=== PATIENT | male | born 1985 | race Caucasian/White ===

== ENCOUNTER 2017-09-19 21:13 | Emergency (ER) | payer MEDICAID, OTHER ==
[~2017-09-19] VITALS: Ht 180.3 cm; Wt 155.3 kg
[2017-09-19 21:14] VITALS: BP 144/99
[2017-09-19] MEDS ORDERED: IBUPROFEN (21:31)
[2017-09-19] MEDS ORDERED: INDOMETHACIN 50 MG CAPSULE PO ONE (22:00)
== END 2017-09-19 22:30 | disposition home or self-care (01) ==
LOC: ED 22:00
DX: M79.641 Pain in right hand (principal); M25.531 Pain in right wrist; M10.9 Gout, unspecified
CPT/HCPCS: 99284

== ENCOUNTER 2018-11-01 13:30 | Emergency (ER) | payer SELFPAY ==
[~2018-11-01] VITALS: Ht 180.3 cm; Wt 168.3 kg
[~2018-11-01 13:30] MED LIST: IBUPROFEN
[2018-11-01 13:36] VITALS: BP 129/82
[2018-11-01] MEDS ORDERED: METHOCARBAMOL 750 MG TABLET ONE (14:11)
[2018-11-01] MEDS ORDERED: KETOROLAC 30 MG/1 ML ONE (14:11)
[2018-11-01] MEDS ORDERED: KETOROLAC 30 MG/1 ML IM ONE (14:30)
[2018-11-01] MEDS ORDERED: METHOCARBAMOL 750 MG TABLET PO ONE (14:30)
== END 2018-11-01 15:10 | disposition home or self-care (01) ==
LOC: ED 15:00
DX: S39.012A Strain of muscle, fascia and tendon of lower back, initial encounter (principal); M13.171 Monoarthritis, not elsewhere classified, right ankle and foot; X58.XXXA Exposure to other specified factors, initial encounter; Y93.89 Activity, other specified; Y92.89 Other specified places as the place of occurrence of the external cause; Y99.8 Other external cause status
CPT/HCPCS: 72110; 96372; 99283; J1885